=== PATIENT | female | born 1950 | race African-American/Black ===

== ENCOUNTER 2024-11-18 18:54 | Emergency (ER) | payer OTHER, BC ==
[~2024-11-18] VITALS: Ht 167.6 cm; Wt 60.5 kg
--- NOTE | 2024-11-18 20:06 | ED.PDOC ---
History of Present Illness HPI Comments 74 y/o F presents from urgent care with spouse for c/o cough, today. Patient is a poor historian and endorses on being sent from an urgent care facility when, initially, being evaluated for a persisting cough, that has been ongoing for 2x weeks, due to concern for possible pneumothorax. She denies any shortness of breath, chest pain, congestion, fever, or other associated symptoms or modifiers at this time. Chief Complaint: Cough Time Seen by MD: 19:45 Reviewed Notes: Nurses Notes, Medications, Allergies Allergies: Coded Allergies: NO KNOWN ALLERGIES (Unverified , 11/18/24) Information Source: Patient Mode of Arrival: Ambulatory Severity: Moderate Timing: Hours Duration: Since onset Prehospital treatment: Other (see HPI) Past Medical History PAST MEDICAL HISTORY: Denies Surgical History: Denies all surgeries GROUND INSTRUCTOR ADVANCED History: No Pertinent GROUND INSTRUCTOR ADVANCED History Family History Family History: Unknown Social History Smoker: Non-Smoker Alcohol: Denies ETOH Use Drugs: Denies Drug Use Lives In: Home Respiratory: reports: cough All Other Systems: Reviewed and Negative (negative unless otherwise stated above or in HPI) Physical Exam General Appearance: No Apparent Distress, Normal HEENT: Normal ENT Inspection, Pharynx Normal, TMs Normal Neck: Full Range of Motion, Non-Tender, Normal, Normal Inspection Respiratory: Chest Non-Tender, Lungs Clear, No Accessory Muscle Use, No Respiratory Distress, Normal Breath Sounds Cardiovascular: No Edema, No JVD, No Murmur, No Gallop, Normal Peripheral Pulses, Regular Rate/Rhythm Breast Exam: Deferred Gastrointestinal: No Organomegaly, Non Tender, No Pulsatile Mass, Normal Bowel Sounds, Soft Genitalia: Deferred Pelvic: Deferred Rectal: Deferred Extremities: No calf tenderness, Normal capillary refill, Normal inspection, Normal range of motion, Non-tender, No pedal edema Musculoskeletal : Apperance: Normal Neurologic: Alert, director heart II-XII nml as Tested, No Motor Deficits, Normal Affect, Normal Mood, No Sensory Deficits Cerebellar Function: Normal Reflexes: Normal Skin: Dry, Normal Color, Warm Lymphatic: No Adenopathy Was a procedure done? Was a procedure done?: No Differential Dx Considerations may include: pneumothorax, PNA, URI, viral syndrome, bronchitis X-Ray, Labs, Meds, VS Vital Signs Date Time Temp Pulse Resp B/P (MAP) Pulse Ox O2 Delivery O2 Flow Rate FiO2 11/18/24 22:39 18 96 Room Air* 0 21 21 11/18/24 22:30 97.8 81 18 121/72 (88) 96 97.8 11/18/24 19:31 98.4 52 16 135/90 (105) 94 11/18/24 19:31 16 94 Room Air* 0 21 Time of 1ST Reevaluation: 19:15 Reevaluation 1ST: Unchanged Time of 2ND Reevaluation: 20:30 Reevaluation 2ND: Improved Patient Education/Counseling: Diagnosis, Treatment Family Education/Counseling: No Family Present Departure 1 Departure Time of Disposition: 20:30 Impression: Primary Impression: Cough Disposition: 01 HOME / SELF CARE / HOMELESS Condition: Stable Discharged With: Self Comments CXR shows no evidence of pneumothorax Critical Care Note Critical Care Time?: No Stability Stability form required: No Heart Score Heart Score: Heart Score Response (Comments) Value History N/A 0 EKG N/A 0 Age N/A 0 Risk Factors N/A 0 Troponin N/A 0 Total 0 I personally scribed for KARLA CHAVES MD ([email or web address]) on 11/18/24 at 20:06. Electronically submitted by Flo Tierney [email or web address]). KARLA CHAVES MD Nov 18, 2024 20:06
--- NOTE | 2024-11-18 20:23 | DVH ---
CHEST RADIOGRAPH Indication: cough, possible pneumothorax Technique: Frontal and lateral view of the chest was obtained Comparison: None FINDINGS: Lines and Tubes: None Lungs: Clear Pleura: No effusion. No pneumothorax. Cardiomediastinal contours: Unremarkable Bones: Osteopenia. Moderate thoracic dextroscoliosis. IMPRESSION: No evidence of acute disease.
[2024-11-18 22:30] VITALS: BP 121/72; PULSE 81; TEMP 97.8
[2024-11-18 22:39] VITALS: RESP 18; O2SAT 96
== END 2024-11-18 22:50 | disposition home or self-care (01) ==
LOC: ER 18:54
DX: R05.9 Cough, unspecified (principal)
CPT/HCPCS: 71046

== ENCOUNTER 2025-06-17 21:11 | Emergency (ER) | payer OTHER, BC ==
[~2025-06-17] VITALS: Ht 170.2 cm; Wt 63.6 kg
--- NOTE | 2025-06-17 21:38 | ED.PDOC ---
History of Present Illness HPI Comments 74 y/o F, with a Hx of COPD, is BIBA with spouse for c/c shortness of breath. Patient endorses on 1x day history of difficulty breathing, which worsened, this evening. No relief or improvement with at home breathing treatment. Denial of any chest pain, congestion, fever, chills, or further associated symptoms. Chief Complaint: Shortness of Breath Time Seen by MD: 21:30 Reviewed Notes: Nurses Notes, Data Programmer Notes, Medications, Allergies Allergies: Coded Allergies: NO KNOWN ALLERGIES (Unverified , 11/18/24) Home Meds Active Scripts Prednisone (Prednisone) 20 Mg Tab, 20 MG PO BID for 5 Days, #10 TAB Prov:KARLA CHAVES MD 06/18/25 Azithromycin (Azithromycin) 500 Mg Tab, 1 TAB PO DAILY, #5 TAB Prov:KARLA CHAVES MD 06/18/25 Albuterol Sulfate (Albuterol Sulfate Hfa) 108 Mcg/Act Aer, 108 MCG IN Q6HP PRN, #1 AER Prov:KARLA CHAVES MD 06/18/25 Albuterol Sulfate (Albuterol Sulfate) 0.083 % Neb, 1 VIAL NEB Q4HPRN PRN, #50 VIAL Prov:KARLA CHAVES MD 06/18/25 Information Source: Patient, Emergency Med Personnel Mode of Arrival: EMS Severity: Moderate Timing: Hours Duration: Since onset Prehospital treatment: 12 Lead EKG, Senior Scheduler, Oxygen Past Medical History PAST MEDICAL HISTORY: COPD Past Medical History (Other): scoliosis Surgical History: Denies all surgeries DINKEY ENGINE MECHANIC History: No Pertinent DINKEY ENGINE MECHANIC History Family History Family History: Unknown Social History Smoker: Non-Smoker Alcohol: Denies ETOH Use Drugs: Denies Drug Use Lives In: Home All Other Systems: Reviewed and Negative (As per HPI) Physical Exam General Appearance: Mild Distress, Normal HEENT: Normal ENT Inspection, Pharynx Normal, TMs Normal Neck: Full Range of Motion, Non-Tender, Normal, Normal Inspection Respiratory: Chest Non-Tender, No Accessory Muscle Use, No Respiratory Distress, Wheezing (diffused scattered wheezes, bilaterally) Cardiovascular: No Edema, No JVD, No Murmur, No Gallop, Normal Peripheral Pulses, Regular Rate/Rhythm Breast Exam: Deferred Gastrointestinal: No Organomegaly, Non Tender, No Pulsatile Mass, Normal Bowel Sounds, Soft Genitalia: Deferred Pelvic: Deferred Rectal: Deferred Extremities: No calf tenderness, Normal capillary refill, Normal inspection, Normal range of motion, Non-tender, No pedal edema Musculoskeletal : Apperance: Normal Neurologic: Alert, inspector wire products II-XII nml as Tested, No Motor Deficits, Normal Affect, Normal Mood, No Sensory Deficits Cerebellar Function: Normal Reflexes: Normal Skin: Dry, Normal Color, Warm Lymphatic: No Adenopathy Was a procedure done? Was a procedure done?: No Differential Dx Considerations may include: acute COPD exacerbation, URI, PNA, viral syndrome, NC, PE, among others X-Ray, Labs, Meds, VS Vital Signs Date Time Temp Pulse Resp B/P (MAP) Pulse Ox O2 Delivery O2 Flow Rate FiO2 06/18/25 00:35 97 06/17/25 22:28 98.9 86 16 128/76 (93) 96 98.9 06/17/25 22:28 16 96 Nasal Cannula* 2 28 06/17/25 22:00 16 95 Nasal Cannula* 2 28 06/17/25 21:44 90 06/17/25 21:11 97.8 84 18 132/78 97 97.8 06/17/25 21:11 85 Room Air* 0 21 Lab Test 06/17/25 23:17 06/17/25 22:50 06/17/25 21:53 06/17/25 21:52 Range/Units Influenza Type A Antigen Negative Negative Influenza Type B Antigen Negative Negative SARS-CoV-2 Antigen (Rapid) Negative NEGATIVE Troponin I High Sensitivity < 3 L < 3 L </=34 ng/L Blood Gas Specimen Type Venous Blood Gas Sample Site Vbg - n/a Blood Gas Patient Temperature 37.0 Arterial Blood Date Drawn [id number] Nicolas Test N/a Venous Blood pH 7.354 7.320-7.430 Venous Blood pCO2 at Patient Temp 49.0 38.0-54.0 mmHg Venous Blood pO2 at Patient Temp < 36.5 23.0-48.0 mmHg Venous Blood HCO3 26.7 22.0-29.0 mmol/L Venous Blood Base Excess 0.4 -2.0-3.0 mmol/L Blood Gas Liter Flow 2.00 Blood Gas Modality Nasal cannula FiO2 % 28.0 White Blood Count 10.0 4.4-10.8 10^3/uL Red Blood Count 4.55 4.0-5.20 10^6/uL Hemoglobin 12.5 12.2-16.2 g/dL Hematocrit 38.0 36.0-46.0 % Mean Corpuscular Volume 83.6 80.0-100.0 fL Mean Corpuscular Hemoglobin 27.5 L 28.0-32.0 pg Mean Corpuscular Hemoglobin Concent 32.9 32.0-36.0 g/dL Red Cell Distribution Width 15.3 H 11.8-14.3 % Platelet Count 224 140-450 10^3/uL Mean Platelet Volume 7.9 6.9-10.8 fL Neutrophils (%) (Auto) 94.2 H 37.0-80.0 % Lymphocytes (%) (Auto) 4.5 L 10.0-50.0 % Monocytes (%) (Auto) 0.7 0.0-12.0 % Eosinophils (%) (Auto) 0.4 0.0-7.0 % Basophils (%) (Auto) 0.2 0.0-2.0 % Neutrophils # (Auto) 9.4 H 1.6-8.6 10 ^3/uL Lymphocytes # (Auto) 0.4 0.4-5.4 10 ^3/uL Monocytes # (Auto) 0.1 0-1.3 10 ^3/uL Eosinophils # (Auto) 0 0-0.8 10 ^3/uL Basophils # (Auto) 0 0-0.2 10 ^3/uL Nucleated Red Blood Cells 0.0 % Sodium Level 139 136-145 mmol/L Potassium Level 3.8 3.5-5.1 mmol/L Chloride Level 103 98-107 mmol/L Carbon Dioxide Level 26 20-31 mmol/L Anion Gap 10 5-15 Blood Urea Nitrogen 10 9-23 mg/dL Creatinine 0.92 0.550-1.02 mg/dL Glomerular Filtration Rate Calc 65 >90 mL/min BUN/Creatinine Ratio 10.9 10.0-20.0 Serum Glucose 189 H 74-106 mg/dL Calcium Level 9.6 8.7-10.4 mg/dL Magnesium Level 2.0 1.6-2.6 mg/dL Total Bilirubin 0.4 0.2-1.0 mg/dL Aspartate Amino Transferase (AST) 25 13-40 U/L Alanine Aminotransferase (ALT) 23 7-40 U/L Alkaline Phosphatase 68 46-116 U/L B-Type Natriuretic Peptide 17.26 0-100 pg/mL Total Protein 7.6 5.7-8.2 g/dL Albumin 4.4 3.2-4.8 g/dL Current Medications Medications (Trade) Dose Ordered Sig/Gita Route Start Time Stop Time Status Last Admin Sodium Chloride 500 ml @ 500 mls/hr Q1H ONCE IV 06/17/25 21:45 06/17/25 22:44 DC 06/17/25 22:24 Prednisone 40 mg ONCE ONCE PO 06/17/25 21:45 06/17/25 21:46 DC 06/17/25 22:24 Albuterol (Ventolin Medneb) 5 mg ONCE ONCE NEB 06/17/25 21:45 06/17/25 21:46 DC 06/17/25 21:57 Ipratropium Gordon (Atrovent Medneb) 0.5 mg ONCE ONCE NEB 06/17/25 21:45 06/17/25 21:46 DC 06/17/25 21:57 Magnesium Sulfate/ Dextrose 100 ml @ 100 mls/hr ONCE ONCE IV 06/17/25 21:45 06/17/25 22:44 DC 06/17/25 22:24 Time of 1ST Reevaluation: 22:00 Reevaluation 1ST: Unchanged Patient Education/Counseling: Diagnosis, Treatment Family Education/Counseling: Diagnosis, Treatment SEPSIS Sepsis Screen Date sepsis recognized/suspect: Jun 17, 2025 Time Sepsis recognized/suspect: 2110 Recent Procedure: No On Antibiotic Therapy: No Respiratory Rate >20: No Heart Rate >90: No Temp<36 C (96.8 F) or >38.3 C: No SBP <90 or MAP <65 mmHG: No New Acute Mental Status Change: No Is the patient on CPAP, BIPAP,: No Physician Orders Chest Portable (06/17/25 21:34) Heplock Iv (06/17/25 21:34) Venous Blood Gas (06/17/25 21:34) Vital Signs Date Time Temp Pulse Resp B/P (MAP) Pulse Ox O2 Delivery O2 Flow Rate FiO2 06/18/25 00:35 97 06/17/25 22:28 98.9 86 16 128/76 (93) 96 98.9 06/17/25 22:28 16 96 Nasal Cannula* 2 28 06/17/25 22:00 16 95 Nasal Cannula* 2 28 06/17/25 21:44 90 06/17/25 21:11 97.8 84 18 132/78 97 97.8 06/17/25 21:11 85 Room Air* 0 21 Laboratory Tests Test 06/17/25 21:52 White Blood Count 10.0 10^3/uL (4.4-10.8) Medications Medications Dose Ordered Sig/Gita Route Start Time Stop Time Status Last Admin Dose Admin Albuterol 5 mg ONCE ONCE NEB 06/17/25 21:45 06/17/25 21:46 DC 06/17/25 21:57 Ipratropium Gordon 0.5 mg ONCE ONCE NEB 06/17/25 21:45 06/17/25 21:46 DC 06/17/25 21:57 Magnesium Sulfate/ Dextrose 100 ml @ 100 mls/hr ONCE ONCE IV 06/17/25 21:45 06/17/25 22:44 DC 06/17/25 22:24 Prednisone 40 mg ONCE ONCE PO 06/17/25 21:45 06/17/25 21:46 DC 06/17/25 22:24 Sodium Chloride 500 ml @ 500 mls/hr Q1H ONCE IV 06/17/25 21:45 06/17/25 22:44 DC 06/17/25 22:24 Departure 1 Departure Time of Disposition: 23:30 Impression: Primary Impression: COPD with exacerbation Disposition: HOME / SELF CARE / HOMELESS Condition: Stable e-Prescriptions Prednisone (Prednisone) 20 Mg Tab 20 MG PO BID for 5 Days, #10 TAB Prov: KARLA CHAVES MD 06/18/25 Azithromycin (Azithromycin) 500 Mg Tab 1 TAB PO DAILY, #5 TAB Prov: KARLA CHAVES MD 06/18/25 Albuterol Sulfate (Albuterol Sulfate Hfa) 108 Mcg/Act Aer 108 MCG IN Q6HP PRN, #1 AER Prov: KARLA CHAVES MD 06/18/25 Albuterol Sulfate (Albuterol Sulfate) 0.083 % Neb 1 VIAL NEB Q4HPRN PRN, #50 VIAL Prov: KARLA CHAVES MD 06/18/25 Discharged With: Self Comments Improved after a breathing treatment, no respiratory distress noted, sats normal. Patient is requesting to go home. Critical Care Note Critical Care Time?: No Stability Stability form required: No Heart Score Heart Score: Heart Score Response (Comments) Value History Moderate Suspicious 1 EKG Normal 0 Age >65 2 Risk Factors 1 or 2 risk factors 1 Troponin Normal limit 0 Total 4 I personally scribed for KARLA CHAVES MD ([email or web address]) on 06/17/25 at 21:38. Electronically submitted by Flo Tierney [email or web address]). KARLA CHAVES MD Jun 17, 2025 21:38
--- NOTE | 2025-06-17 21:52 | ECG ---
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
[2025-06-17] MEDS: IPRATROPIUM BROM 0.5 MG/2.5ML INH SOL NEB ONE (21:57)
[2025-06-17] MEDS: ALBUTEROL SULF 2.5 MG/0.5ML(0.5%) NEB SOLN NEB ONE (21:57)
[2025-06-17 22:06] LABS: Hematocrit 38.0 % (36.0-46.0); Hemoglobin 12.5 g/dL (12.2-16.2); Mean Corpuscular Hemoglobin 27.5 pg (28.0-32.0); Mean Corpuscular Volume 83.6 fL (80.0-100.0); Nucleated Red Blood Cells % 0.0 %
[2025-06-17 22:22] LABS: Alanine Aminotransferase 23 U/L (7-40); Albumin 4.4 g/dL (3.2-4.8); Alkaline Phosphatase 68 U/L (46-116); Anion Gap 10 (5-15); BUN/Creatinine Ratio 10.9 (10.0-20.0); Bilirubin, Total 0.4 mg/dL (0.2-1.0); Blood Urea Nitrogen 10 mg/dL (9-23); Calcium 9.6 mg/dL (8.7-10.4); Carbon Dioxide 26 mmol/L (20-31); Chloride 103 mmol/L (98-107); Magnesium 2.0 mg/dL (1.6-2.6); Potassium 3.8 mmol/L (3.5-5.1); Sodium 139 mmol/L (136-145); Total Protein 7.6 g/dL (5.7-8.2)
[2025-06-17 22:23] LABS: Glucose 189 mg/dL (74-106)
[2025-06-17] MEDS: MAGNESIUM SULFATE 1GM/100ML 100 ML IV ONE (22:24)
[2025-06-17] MEDS: predniSONE 20 MG TAB PO ONE (22:24)
[2025-06-17] MEDS: SODIUM CHLORIDE 0.9% 500 ML IV ONE (22:24)
[2025-06-17 22:28] VITALS: BP 128/76; PULSE 86; RESP 16; TEMP 98.9; O2SAT 96
[2025-06-17 23:44] LABS: COVID19 ANTIGEN SOFIA FIA NEGATIVE (NEGATIVE)
[2025-06-18] MEDS ORDERED: ALBU0.084 NEB (00:23)
[2025-06-18] MEDS ORDERED: AZIT500T66 PO (00:23)
[2025-06-18] MEDS ORDERED: ALBU108A5 IN (00:23)
[2025-06-18] MEDS ORDERED: PRED20TA2 PO (00:23)
[2025-06-18 00:35] VITALS: O2SAT 97
== END 2025-06-18 00:42 | disposition home or self-care (01) ==
LOC: EDSEX 21:11 → ER 21:11 → EDBD 21:11 → ER 06-18 00:42
DX: J44.1 Chronic obstructive pulmonary disease with (acute) exacerbation (principal); Z20.822 Contact with and (suspected) exposure to COVID-19; Z79.899 Other long term (current) drug therapy
CPT/HCPCS: 36415; 36600; 80053; 82805; 83735; 83880; 84484; 85025; 87426; 87804; 93005; 94640; 96365; 99284; J3475; J7512